=== PATIENT | male | born 1955 | race Caucasian/White ===

== ENCOUNTER → 2016-07-29 | Outpatient (CLI) | payer MEDICAID ==
[~2016-07-29] MED LIST: RIVA10TA PO; SIMV40TA96 PO
== END | disposition home or self-care (01) ==
LOC: HDHVI->DVH 08:20
PROVIDERS: ATTEND Internal Medicine Cardiovascular Disease
DX: I34.2 Nonrheumatic mitral (valve) stenosis (principal); I35.0 Nonrheumatic aortic (valve) stenosis; I34.0 Nonrheumatic mitral (valve) insufficiency; I37.1 Nonrheumatic pulmonary valve insufficiency; I07.1 Rheumatic tricuspid insufficiency; I35.1 Nonrheumatic aortic (valve) insufficiency; I25.10 Atherosclerotic heart disease of native coronary artery without angina pectoris; R94.31 Abnormal electrocardiogram [ECG] [EKG]
CPT/HCPCS: 93306

== ENCOUNTER 2016-08-04 03:46 | Emergency (ER) | payer MEDICAID ==
[~2016-08-04] VITALS: Ht 170.2 cm; Wt 94.8 kg
[2016-08-04 04:28] LABS: Basophils # (auto) 0 uL; Basophils % (auto) 0.8 % (0.0-2.0); Eosinophils # (auto) 0 uL; Eosinophils % (auto) 0.3 % (0.0-7.0); Hematocrit 49.9 % (41.0-53.0); Hemoglobin 16.4 g/dL (13.5-17.5); Lymphocytes # (auto) 2.4 uL; Lymphocytes % (auto) 40.2 % (10.0-50.0); Mean Corpuscular Hgb Conc. 32.8 g/dL (32.0-36.0); Mean Corpuscular Volume 88.5 fL (80.0-100.0); Mean Platelet Volume 9.3 fL (7.4-10.4); Monocytes # (auto) 0.7 uL; Monocytes % (auto) 11.7 % (0.0-12.0); Neutrophils # (auto) 2.8 uL; Platelet Count (auto) 178 10^3/uL (140-450); Red Cell Distribution Width 14.9 % (11.6-16.0); White Blood Cell 5.9 10^3/uL (4.4-10.8)
[2016-08-04 04:47] LABS: INR 1.02 (0.9-1.15); Prothrombin Time 10.5 sec (9.37-12.3)
[2016-08-04 05:03] LABS: Albumin 3.7 g/dL (3.4-5.0); Anion Gap 14 (5-15); Aspartate Aminotransferase 33 U/L (15-37); BUN/Creatinine Ratio 20.2; Blood Urea Nitrogen 38 mg/dL (7-18); Calcium 8.2 mg/dL (8.5-10.1); Carbon Dioxide 22 mmol/L (21-32); Chloride 101 mmol/L (98-107); GFR African American 47 mL/min; GFR Non-African American 39 mL/min; Glucose 145 mg/dL (74-106); Magnesium 2.4 mg/dL (1.6-2.6); Potassium 3.4 mmol/L (3.5-5.1); Sodium 137 mmol/L (136-145)
[2016-08-04 05:08] LABS: Alkaline Phosphatase 86 U/L (45-117); Bilirubin, Total 0.5 mg/dL (0.2-1.0); Total Protein 8.1 g/dL (6.4-8.2)
[2016-08-04] MEDS ORDERED: FUROSEMIDE 40 MG/4 ML VIAL IV ONE (07:00)
[2016-08-04 09:07] LABS: B-Type Natriuretic Peptide 10.8 pg/mL (0-100); Temperature: 21.9 C (20.0-25.0)
[2016-08-04 09:34] VITALS: BP 131/80
== END 2016-08-04 09:45 | disposition home or self-care (01) ==
LOC: ER 03:49
DX: I50.9 Heart failure, unspecified (principal); R07.9 Chest pain, unspecified; R05 Cough; R50.9 Fever, unspecified; R51 Headache; I25.2 Old myocardial infarction; N18.9 Chronic kidney disease, unspecified; Z95.1 Presence of aortocoronary bypass graft; Z98.61 Coronary angioplasty status
CPT/HCPCS: 36415; 36600; 71010; 80053; 82805; 83735; 83880; 84484; 85025; 85610; 85730; 93005; 93970; 96374; 99285; G0434; J1940

== ENCOUNTER → 2016-09-10 | Outpatient (CLI) | payer MEDICAID ==
[~2016-09-10] VITALS: Ht 170.2 cm; Wt 88.0 kg
== END | disposition home or self-care (01) ==
LOC: HDHVI->DVH 14:24
PROVIDERS: ATTEND Internal Medicine Cardiovascular Disease
DX: Z01.810 Encounter for preprocedural cardiovascular examination (principal); E78.00 Pure hypercholesterolemia, unspecified
CPT/HCPCS: 78452; 93017; 96374; A9500

== ENCOUNTER 2017-03-28 20:08 | Inpatient (IN) | payer MEDICAID ==
[~2017-03-28] VITALS: Ht 165.1 cm; Wt 94.4 kg
[2017-03-28] MEDS ORDERED: cefTRIAXone 1GM/50ML D5W 50 ML IV ONE (23:15)
[2017-03-28] MEDS ORDERED: VANCOMYCIN 1GM/250ML 250 ML IV ONE (23:15)
[2017-03-28] MEDS ORDERED: HYDROmorphone HCL 2 MG/ML VL IV ONE (23:15)
[2017-03-28 23:20] LABS: Basophils # (auto) 0.1 uL; Basophils % (auto) 0.8 % (0.0-2.0); Eosinophils # (auto) 0.1 uL; Eosinophils % (auto) 0.9 % (0.0-7.0); Hematocrit 44.3 % (41.0-53.0); Hemoglobin 14.9 g/dL (13.5-17.5); Lymphocytes # (auto) 2.7 uL; Lymphocytes % (auto) 23.6 % (10.0-50.0); Mean Corpuscular Hgb Conc. 33.7 g/dL (32.0-36.0); Mean Corpuscular Volume 92.1 fL (80.0-100.0); Monocytes # (auto) 1.2 uL; Monocytes % (auto) 10.7 % (0.0-12.0); Neutrophils # (auto) 7.3 uL; Platelet Count (auto) 181 10^3/uL (140-450); Red Blood Cells 4.81 10^6/uL (4.5-5.90); Red Cell Distribution Width 14.6 % (11.8-14.3); White Blood Cell 11.3 10^3/uL (4.4-10.8)
[2017-03-28 23:49] LABS: Potassium 3.7 mmol/L (3.5-5.1)
[2017-03-28 23:50] LABS: Albumin 3.5 g/dL (3.4-5.0); BUN/Creatinine Ratio 12.8; Calcium 8.6 mg/dL (8.5-10.1)
[2017-03-28 23:53] LABS: Bilirubin, Total 0.9 mg/dL (0.2-1.0); Total Protein 7.4 g/dL (6.4-8.2)
[2017-03-29] MEDS ORDERED: SIMV40TA96 PO (03:04)
[2017-03-29] MEDS ORDERED: ASPI81TA27 PO (03:04)
[2017-03-29] MEDS ORDERED: ONDANSETRON HCL 4 MG/2 ML VIAL IV PRN (03:45)
[2017-03-29] MEDS ORDERED: ACETAMINOPHEN 500 MG TAB PO PRN (03:45)
[2017-03-29] MEDS ORDERED: HYDROcodone-ACET 5/325MG TAB PO PRN (03:45)
[2017-03-29 03:50] VITALS: BP 124/71
[2017-03-29] MEDS ORDERED: VANCOMYCIN PER PHARMACY 0 MG IV SCH (04:15)
[2017-03-29] MEDS ORDERED: OMEG100078 PO (05:40)
[2017-03-29] MEDS ORDERED: MAGN400T5 PO (05:40)
[2017-03-29] MEDS ORDERED: INFLUENZA QUAD 2017-2018 0.5 ML SYRG IM ONE (06:00)
[2017-03-29 06:10] LABS: Basophils # (auto) 0.1 uL; Basophils % (auto) 0.9 % (0.0-2.0); Eosinophils # (auto) 0.2 uL; Eosinophils % (auto) 2.1 % (0.0-7.0); Hematocrit 42.8 % (41.0-53.0); Hemoglobin 14.5 g/dL (13.5-17.5); Lymphocytes # (auto) 2.6 uL; Lymphocytes % (auto) 30.6 % (10.0-50.0); Mean Corpuscular Hemoglobin 31.1 pg (28.0-32.0); Mean Corpuscular Hgb Conc. 33.9 g/dL (32.0-36.0); Mean Corpuscular Volume 91.7 fL (80.0-100.0); Monocytes # (auto) 1.1 uL; Monocytes % (auto) 13.1 % (0.0-12.0); Neutrophils # (auto) 4.6 uL; Neutrophils % (auto) 53.3 % (37.0-80.0); Nucleated Red Blood Cells % 0.1 %; Platelet Count (auto) 160 10^3/uL (140-450); Red Blood Cells 4.67 10^6/uL (4.5-5.90); Red Cell Distribution Width 14.6 % (11.8-14.3); White Blood Cell 8.6 10^3/uL (4.4-10.8)
[2017-03-29 06:26] LABS: Lactic Acid w/Reflex 2.1 mmol/L (0.4-2.0)
[2017-03-29 06:44] LABS: BUN/Creatinine Ratio 13.9; Calcium 8.6 mg/dL (8.5-10.1); Potassium 3.5 mmol/L (3.5-5.1)
[2017-03-29] MEDS: VANCOMYCIN 1GM/250ML 250 ML IV SCH ×2 (08:56→16:53)
[2017-03-29 09:00] VITALS: BP 113/62
[2017-03-29 11:16] LABS: Urine Bacteria NONE SEEN /hpf (None Seen); Urine Blood Negative /uL (Negative); Urine Mucus FEW (None Seen); Urine Specific Gravity 1.024 (1.001-1.035); Urine WBC 1 /hpf (0 - 3)
[2017-03-29 13:00] VITALS: BP 129/82
[2017-03-29 17:00] VITALS: BP 165/88
[2017-03-29] MEDS: ATORVASTATIN 20 MG TAB PO SCH (21:51)
[2017-03-29 21:59] VITALS: BP 133/81
[2017-03-30] MEDS: VANCOMYCIN 1GM/250ML 250 ML IV SCH ×3 (00:45→17:14)
[2017-03-30 04:44] VITALS: BP 139/75
[2017-03-30 06:55] LABS: Basophils # (auto) 0 uL; Basophils % (auto) 0.5 % (0.0-2.0); Eosinophils # (auto) 0.2 uL; Eosinophils % (auto) 2.3 % (0.0-7.0); Hematocrit 43.2 % (41.0-53.0); Hemoglobin 14.6 g/dL (13.5-17.5); Lymphocytes # (auto) 2.1 uL; Lymphocytes % (auto) 26.5 % (10.0-50.0); Mean Corpuscular Hgb Conc. 33.8 g/dL (32.0-36.0); Mean Corpuscular Volume 91.7 fL (80.0-100.0); Monocytes # (auto) 1.2 uL; Monocytes % (auto) 14.9 % (0.0-12.0); Neutrophils # (auto) 4.5 uL; Neutrophils % (auto) 55.8 % (37.0-80.0); Nucleated Red Blood Cells % 0.1 %; Platelet Count (auto) 167 10^3/uL (140-450); Red Blood Cells 4.71 10^6/uL (4.5-5.90); Red Cell Distribution Width 14.5 % (11.8-14.3)
[2017-03-30 07:07] LABS: BUN/Creatinine Ratio 13.3; Calcium 8.9 mg/dL (8.5-10.1); Potassium 3.9 mmol/L (3.5-5.1)
[2017-03-30 09:00] VITALS: BP_SYST 115; BP_SYST 135; BP_DIAS 72; BP_DIAS 86
[2017-03-30 13:00] VITALS: BP_SYST 116; BP_SYST 122; BP_SYST 131; BP_DIAS 67; BP_DIAS 88; BP_DIAS 96
[2017-03-30 17:00] VITALS: BP_SYST 121; BP_SYST 122; BP_DIAS 67; BP_DIAS 88
[2017-03-30 20:00] VITALS: BP 143/83
[2017-03-30] MEDS: ATORVASTATIN 20 MG TAB PO SCH (21:19)
[2017-03-30 21:46] VITALS: BP 143/83
[2017-03-31] MEDS: VANCOMYCIN 1GM/250ML 250 ML IV SCH ×3 (00:35→17:15)
[2017-03-31 05:16] VITALS: BP 145/90
[2017-03-31 06:01] LABS: BUN/Creatinine Ratio 17.2; Calcium 8.9 mg/dL (8.5-10.1); Potassium 4.1 mmol/L (3.5-5.1)
[2017-03-31 08:00] VITALS: BP 137/83
[2017-03-31 08:36] VITALS: BP 137/83
[2017-03-31 13:00] VITALS: BP 119/71
[2017-03-31 17:03] VITALS: BP 156/84
[2017-03-31] MEDS: ATORVASTATIN 20 MG TAB PO SCH (21:57)
[2017-03-31 22:00] VITALS: BP 132/79
[2017-04-01] MEDS: VANCOMYCIN 1GM/250ML 250 ML IV SCH ×3 (01:16→18:15)
[2017-04-01 05:00] VITALS: BP 119/78
[2017-04-01 06:36] LABS: Basophils # (auto) 0.1 uL; Eosinophils # (auto) 0.3 uL; Hematocrit 44.2 % (41.0-53.0); Hemoglobin 15.3 g/dL (13.5-17.5); Lymphocytes # (auto) 2.5 uL; Lymphocytes % (auto) 36.5 % (10.0-50.0); Mean Corpuscular Hemoglobin 31.5 pg (28.0-32.0); Mean Corpuscular Hgb Conc. 34.6 g/dL (32.0-36.0); Mean Corpuscular Volume 91.1 fL (80.0-100.0); Monocytes % (auto) 14.8 % (0.0-12.0); Neutrophils # (auto) 2.9 uL; Neutrophils % (auto) 43.7 % (37.0-80.0); Nucleated Red Blood Cells % 0.1 %; Platelet Count (auto) 205 10^3/uL (140-450); Red Blood Cells 4.85 10^6/uL (4.5-5.90); Red Cell Distribution Width 14.2 % (11.8-14.3); White Blood Cell 6.7 10^3/uL (4.4-10.8)
[2017-04-01 06:43] LABS: BUN/Creatinine Ratio 14.7; Calcium 8.9 mg/dL (8.5-10.1); Potassium 4.1 mmol/L (3.5-5.1)
[2017-04-01 06:46] LABS: Bilirubin, Total 0.3 mg/dL (0.2-1.0); Total Protein 6.8 g/dL (6.4-8.2)
[2017-04-01 08:00] VITALS: BP 134/78
[2017-04-01 09:00] VITALS: BP 134/78
[2017-04-01 13:00] VITALS: BP 139/80
[2017-04-01] MEDS: CEFEPIME HYDROCHLORIDE 2 GM in SODIUM CHL 0.9% 50 ML IV SCH ×2 (14:28→21:52)
[2017-04-01 16:56] VITALS: BP 136/90
[2017-04-01] MEDS: ATORVASTATIN 20 MG TAB PO SCH (21:32)
[2017-04-01 22:00] VITALS: BP 148/101
[2017-04-02] MEDS: VANCOMYCIN 1GM/250ML 250 ML IV SCH ×3 (01:26→17:00)
[2017-04-02 05:00] VITALS: BP 152/96
[2017-04-02] MEDS: CEFEPIME HYDROCHLORIDE 2 GM in SODIUM CHL 0.9% 50 ML IV SCH ×2 (05:15→13:53)
[2017-04-02 08:00] VITALS: BP 145/96
[2017-04-02 09:00] VITALS: BP 145/96
[2017-04-02 13:00] VITALS: BP 130/81
== END 2017-04-02 17:15 | disposition left against medical advice (07) | DRG 721 ==
LOC: ER 20:08 → OVERFLOW 20:09 → WEST WING 03-29 03:50
PROVIDERS: ADMIT Nurse Practitioner Family; ATTEND Internal Medicine Pulmonary Disease
DX: T81.4XXA Infection following a procedure, initial encounter (principal); A41.9 Sepsis, unspecified organism; L03.115 Cellulitis of right lower limb; E78.5 Hyperlipidemia, unspecified; J44.9 Chronic obstructive pulmonary disease, unspecified; E11.9 Type 2 diabetes mellitus without complications; Y83.8 Other surgical procedures as the cause of abnormal reaction of the patient, or of later complication, without mention of misadventure at the time of the procedure; Y92.89 Other specified places as the place of occurrence of the external cause; Z79.82 Long term (current) use of aspirin; Z79.899 Other long term (current) drug therapy; Z83.3 Family history of diabetes mellitus; Z23 Encounter for immunization
CPT/HCPCS: 36415; 73700; 80048; 80053; 80202; 81001; 83605; 83880; 85025; 87040; 87077; 87186; 87205; 96365; 96368; 96375; J0696

== ENCOUNTER 2021-03-26 15:12 | Inpatient (IN) | payer MEDICAID ==
[~2021-03-26] VITALS: Ht 170.2 cm; Wt 91.0 kg
[~2021-03-26 15:12] MED LIST changes: +ASPI-543 PO; +MAGN400T40 PO; +OMEG100078 PO; -RIVA10TA PO; +SIMV40TA2 PO; -SIMV40TA96 PO
[2021-03-26 16:57] LABS: Basophils # (auto) 0 10 ^3/uL (0-0.2); Basophils % (auto) 0.2 % (0.0-2.0); Eosinophils # (auto) 0.1 10 ^3/uL (0-0.8); Eosinophils % (auto) 0.8 % (0.0-7.0); Hematocrit 42.3 % (41.0-53.0); Lymphocytes # (auto) 1.9 10 ^3/uL (0.4-5.4); Lymphocytes % (auto) 18.2 % (10.0-50.0); Mean Corpuscular Hemoglobin 30.6 pg (28.0-32.0); Mean Corpuscular Hgb Conc. 33.1 g/dL (32.0-36.0); Mean Corpuscular Volume 92.5 fL (80.0-100.0); Monocytes # (auto) 1.4 10 ^3/uL (0-1.3); Monocytes % (auto) 13.8 % (0.0-12.0); Red Blood Cells 4.57 10^6/uL (4.5-5.90); Red Cell Distribution Width 15.1 % (11.8-14.3); White Blood Cell 10.4 10^3/uL (4.4-10.8)
[2021-03-26 17:13] LABS: Albumin 2.5 g/dL (3.4-5.0); BUN/Creatinine Ratio 19.8; Potassium 3.8 mmol/L (3.5-5.1)
[2021-03-26 17:15] LABS: Bilirubin, Total 0.7 mg/dL (0.2-1.0); Total Protein 5.9 g/dL (6.4-8.2)
[2021-03-26 20:48] LABS: Magnesium 2.2 mg/dL (1.6-2.6)
[2021-03-26 20:57] LABS: CRP High Sensitivity 17.8 mg/dL (< 0.3)
[2021-03-26] MEDS ORDERED: cefTRIAXone 1GM/50ML D5W 50 ML IV ONE (23:15)
[2021-03-26] MEDS ORDERED: VANCOMYCIN 1GM/250ML 250 ML IV ONE (23:15)
[2021-03-27] MEDS ORDERED: FUROSEMIDE 20 MG/2 ML VIAL IV ONE (02:00)
[2021-03-27] MEDS ORDERED: HYDROcodone-ACET 5/325MG TAB PO PRN (02:00)
[2021-03-27] MEDS ORDERED: TEMAZEPAM 15 MG CAP PO PRN (02:00)
[2021-03-27] MEDS ORDERED: ONDANSETRON HCL 4 MG/2 ML VIAL IV PRN (02:00)
[2021-03-27] MEDS ORDERED: ACETAMINOPHEN 325 MG TAB PO PRN (02:00)
[2021-03-27] MEDS ORDERED: VANCOMYCIN PER PHARMACY 0 MG IV SCH (03:00)
[2021-03-27] MEDS: IBUPROFEN 600 MG TAB PO PRN (03:37)
[2021-03-27] MEDS ORDERED: CLINDAMYCIN 600MG IV 50 ML IV SCH (06:00)
[2021-03-27] MEDS ORDERED: VANCOMYCIN 1GM/250ML 250 ML IV ONE (07:36)
[2021-03-27] MEDS: ENOXAPARIN SOD 40 MG/0.4 ML SYRINGE SC SCH (09:26)
[2021-03-27] MEDS: FUROSEMIDE 20 MG TAB PO SCH (09:26)
[2021-03-27] MEDS: cefTRIAXone 1GM/50ML D5W 50 ML IV SCH (09:26)
[2021-03-27] MEDS ORDERED: PANTOPRAZOLE 40 MG TAB PO SCH (10:00)
[2021-03-27] MEDS ORDERED: ASPirin 81 mg TAB PO ONE (14:45)
[2021-03-27 16:22] LABS: Cholesterol 114 mg/dL (< 200); HDL Cholesterol 19 mg/dL (40-59); LDL Cholesterol 82 mg/dL (< 100); Triglycerides 113 mg/dL (< 150)
[2021-03-27] MEDS: ACETAMINOPHEN 325 MG TAB PO PRN (17:07)
[2021-03-27 17:54] VITALS: BP 124/68
[2021-03-27 20:00] VITALS: BP 129/66
[2021-03-27] MEDS: VANCOMYCIN 1GM/250ML 250 ML IV SCH (20:35)
[2021-03-27 22:02] VITALS: BP 129/66
[2021-03-27] MEDS: ATORVASTATIN 20 MG TAB PO SCH (22:25)
[2021-03-28] VITALS (7 sets, daily range): BP systolic 119–145; BP diastolic 67–74
[2021-03-28 06:04] LABS: Basophils # (auto) 0.1 10 ^3/uL (0-0.2); Basophils % (auto) 0.8 % (0.0-2.0); Eosinophils # (auto) 0.1 10 ^3/uL (0-0.8); Eosinophils % (auto) 0.8 % (0.0-7.0); Hematocrit 42.2 % (41.0-53.0); Hemoglobin 14.3 g/dL (13.5-17.5); Lymphocytes % (auto) 18.5 % (10.0-50.0); Mean Corpuscular Hemoglobin 31.2 pg (28.0-32.0); Mean Corpuscular Hgb Conc. 33.9 g/dL (32.0-36.0); Mean Corpuscular Volume 91.9 fL (80.0-100.0); Monocytes # (auto) 1.5 10 ^3/uL (0-1.3); Neutrophils # (auto) 7.1 10 ^3/uL (1.6-8.6); Neutrophils % (auto) 65.9 % (37.0-80.0); Nucleated Red Blood Cells % 0.1 %; Red Cell Distribution Width 15.1 % (11.8-14.3); White Blood Cell 10.8 10^3/uL (4.4-10.8)
[2021-03-28 07:05] LABS: BUN/Creatinine Ratio 20.8; Calcium 7.8 mg/dL (8.5-10.1); Potassium 3.7 mmol/L (3.5-5.1)
[2021-03-28] MEDS: VANCOMYCIN 1GM/250ML 250 ML IV SCH ×2 (08:30→20:48)
[2021-03-28] MEDS: ASPirin 81 mg TAB PO SCH (08:31)
[2021-03-28] MEDS: ENOXAPARIN SOD 40 MG/0.4 ML SYRINGE SC SCH (08:31)
[2021-03-28] MEDS: FUROSEMIDE 20 MG TAB PO SCH (08:32)
[2021-03-28] MEDS: cefTRIAXone 1GM/50ML D5W 50 ML IV SCH (09:30)
[2021-03-28] MEDS: MORPHINE SULFATE INJECTION 2 MG/ML SYRG IV PRN (13:13)
[2021-03-28] MEDS: IBUPROFEN 600 MG TAB PO PRN (16:52)
[2021-03-28] MEDS: ACETAMINOPHEN 325 MG TAB PO PRN (17:56)
[2021-03-28] MEDS: ATORVASTATIN 20 MG TAB PO SCH (22:00)
[2021-03-29] MEDS: VANCOMYCIN 1GM/250ML 250 ML IV SCH ×3 (04:35→22:18)
[2021-03-29] MEDS: MORPHINE SULFATE INJECTION 2 MG/ML SYRG IV PRN ×4 (04:36→20:57)
[2021-03-29 05:30] VITALS: BP 122/79
[2021-03-29 08:36] VITALS: BP 124/64
[2021-03-29] MEDS: ASPirin 81 mg TAB PO SCH (09:18)
[2021-03-29] MEDS: cefTRIAXone 1GM/50ML D5W 50 ML IV SCH (09:18)
[2021-03-29] MEDS: ENOXAPARIN SOD 40 MG/0.4 ML SYRINGE SC SCH (09:18)
[2021-03-29] MEDS: FUROSEMIDE 20 MG TAB PO SCH (09:18)
[2021-03-29 12:57] VITALS: BP 123/64
[2021-03-29 17:13] VITALS: BP 121/68
[2021-03-29 20:00] VITALS: BP 118/74
[2021-03-29 22:00] VITALS: BP 118/74
[2021-03-29] MEDS: ATORVASTATIN 20 MG TAB PO SCH (22:18)
[2021-03-30] MEDS: MORPHINE SULFATE INJECTION 2 MG/ML SYRG IV PRN ×3 (04:27→14:58)
[2021-03-30] MEDS: VANCOMYCIN 1GM/250ML 250 ML IV SCH ×3 (04:28→23:30)
[2021-03-30 05:00] VITALS: BP 115/74
[2021-03-30 09:00] VITALS: BP 122/82
[2021-03-30] MEDS: cefTRIAXone 1GM/50ML D5W 50 ML IV SCH (09:33)
[2021-03-30] MEDS: ENOXAPARIN SOD 40 MG/0.4 ML SYRINGE SC SCH (09:34)
[2021-03-30] MEDS: FUROSEMIDE 20 MG TAB PO SCH (09:34)
[2021-03-30] MEDS: ASPirin 81 mg TAB PO SCH (09:34)
[2021-03-30 12:00] VITALS: BP 106/67
[2021-03-30 17:12] VITALS: BP 112/62
[2021-03-30 22:00] VITALS: BP 108/72
[2021-03-30] MEDS: ATORVASTATIN 20 MG TAB PO SCH (22:00)
[2021-03-31] MEDS: MORPHINE SULFATE INJECTION 2 MG/ML SYRG IV PRN ×5 (02:44→23:43)
[2021-03-31 05:00] VITALS: BP 109/70
[2021-03-31 09:27] VITALS: BP 108/67
[2021-03-31] MEDS: VANCOMYCIN 1GM/250ML 250 ML IV SCH ×2 (09:37→18:45)
[2021-03-31] MEDS: cefTRIAXone 1GM/50ML D5W 50 ML IV SCH (10:04)
[2021-03-31] MEDS: ASPirin 81 mg TAB PO SCH (10:04)
[2021-03-31] MEDS: ENOXAPARIN SOD 40 MG/0.4 ML SYRINGE SC SCH (10:05)
[2021-03-31] MEDS: FUROSEMIDE 20 MG TAB PO SCH (10:05)
[2021-03-31 17:01] VITALS: BP 102/68
[2021-03-31 20:00] VITALS: BP 112/69
[2021-03-31] MEDS: ATORVASTATIN 20 MG TAB PO SCH (21:43)
[2021-03-31 22:00] VITALS: BP 103/62
[2021-04-01 05:00] VITALS: BP 107/70
[2021-04-01] MEDS: VANCOMYCIN 1GM/250ML 250 ML IV SCH ×2 (05:16→15:21)
[2021-04-01] MEDS: MORPHINE SULFATE INJECTION 2 MG/ML SYRG IV PRN ×2 (05:28→19:04)
[2021-04-01 05:42] LABS: Basophils # (auto) 0.1 10 ^3/uL (0-0.2); Eosinophils # (auto) 0.2 10 ^3/uL (0-0.8); Eosinophils % (auto) 2.5 % (0.0-7.0); Hematocrit 46.5 % (41.0-53.0); Hemoglobin 15.2 g/dL (13.5-17.5); Lymphocytes # (auto) 2.3 10 ^3/uL (0.4-5.4); Lymphocytes % (auto) 27.8 % (10.0-50.0); Mean Corpuscular Hemoglobin 29.9 pg (28.0-32.0); Mean Corpuscular Hgb Conc. 32.7 g/dL (32.0-36.0); Mean Corpuscular Volume 91.6 fL (80.0-100.0); Monocytes % (auto) 12.4 % (0.0-12.0); Neutrophils # (auto) 4.6 10 ^3/uL (1.6-8.6); Neutrophils % (auto) 56.3 % (37.0-80.0); Nucleated Red Blood Cells % 0.1 %; Red Blood Cells 5.07 10^6/uL (4.5-5.90); Red Cell Distribution Width 14.8 % (11.8-14.3); White Blood Cell 8.2 10^3/uL (4.4-10.8)
[2021-04-01 06:05] LABS: Calcium 8.4 mg/dL (8.5-10.1); Potassium 4.7 mmol/L (3.5-5.1)
[2021-04-01 06:09] LABS: BUN/Creatinine Ratio 20.8
[2021-04-01 08:31] VITALS: BP 112/71
[2021-04-01] MEDS: cefTRIAXone 1GM/50ML D5W 50 ML IV SCH (09:35)
[2021-04-01] MEDS: ASPirin 81 mg TAB PO SCH (09:35)
[2021-04-01] MEDS: ENOXAPARIN SOD 40 MG/0.4 ML SYRINGE SC SCH (09:36)
[2021-04-01] MEDS: FUROSEMIDE 20 MG TAB PO SCH (09:36)
[2021-04-01 12:50] VITALS: BP 111/69
[2021-04-01 16:50] VITALS: BP 100/66
[2021-04-01] MEDS: ATORVASTATIN 20 MG TAB PO SCH (21:09)
[2021-04-01 22:00] VITALS: BP 97/66
[2021-04-02 01:06] LABS: INR 1.1 (0.9-1.15); Partial Thromboplastin Time 27.6 sec (23.6-33.0)
[2021-04-02] MEDS: VANCOMYCIN 1GM/250ML 250 ML IV SCH ×3 (01:29→20:46)
[2021-04-02 02:30] LABS: Urine Bacteria NONE SEEN /hpf (None Seen); Urine Blood Negative /uL (Negative); Urine WBC 1 /hpf (0 - 3)
[2021-04-02 05:00] VITALS: BP 110/73
[2021-04-02] MEDS ORDERED: ceFAZolin 1GM/50ML 100 ML IV ONE (08:41)
[2021-04-02 09:00] VITALS: BP 102/69
[2021-04-02] MEDS ORDERED: ROPIVACAINE 0.5% (5MG/ML) 20ML AMPULE IJ ONE (09:13)
[2021-04-02] MEDS ORDERED: fentaNYL CITRATE 100 MCG/2 ML VL ONE (09:26)
[2021-04-02] MEDS ORDERED: MIDAZOLAM HCL 2MG/2ML 2ml VIAL (1mg/ml) ONE (09:26)
[2021-04-02] MEDS ORDERED: PROPOFOL 10 MG/ML 20 ML IV ONE (09:27)
[2021-04-02] MEDS ORDERED: DexAMETHasone SOD PHOS 10MG/1ML VIAL INJ ONE (09:27)
[2021-04-02] MEDS ORDERED: MORPHINE SULFATE 4 MG/ML SYR/VIAL IV PRN (09:45)
[2021-04-02] MEDS ORDERED: ONDANSETRON HCL 4 MG/2 ML VIAL IV PRN (09:45)
[2021-04-02] MEDS ORDERED: HYDROmorphone HCL 2 MG/ML VL IV PRN (09:45)
[2021-04-02] MEDS ORDERED: ePHEDrine SULFATE 50 MG/ML AMP IV PRN (09:45)
[2021-04-02] MEDS ORDERED: MIDAZOLAM HCL 2MG/2ML 2ml VIAL (1mg/ml) IV PRN (09:45)
[2021-04-02] MEDS ORDERED: LABETALOL HCL 5 MG/ML 4ML SYRINGE IV PRN (09:45)
[2021-04-02] MEDS ORDERED: hydrALAZINE HCL 20 MG/ML VL IV PRN (09:45)
[2021-04-02] MEDS ORDERED: SILVER SULFADIAZINE 1 % TOPICAL CREAM 50GM TOP ONE (09:49)
[2021-04-02] MEDS: ASPirin 81 mg TAB PO SCH (10:00)
[2021-04-02] MEDS: ENOXAPARIN SOD 40 MG/0.4 ML SYRINGE SC SCH (10:00)
[2021-04-02] MEDS: FUROSEMIDE 20 MG TAB PO SCH (12:33)
[2021-04-02] MEDS: cefTRIAXone 1GM/50ML D5W 50 ML IV SCH (12:33)
[2021-04-02 13:00] VITALS: BP 105/72
[2021-04-02] MEDS: MORPHINE SULFATE INJECTION 2 MG/ML SYRG IV PRN ×2 (14:53→20:46)
[2021-04-02] MEDS: ATORVASTATIN 20 MG TAB PO SCH (20:46)
[2021-04-02 21:30] VITALS: BP 104/67
[2021-04-03 05:00] VITALS: BP 105/72
[2021-04-03] MEDS: VANCOMYCIN 1GM/250ML 250 ML IV SCH ×2 (06:35→17:15)
[2021-04-03] MEDS: MORPHINE SULFATE INJECTION 2 MG/ML SYRG IV PRN (06:44)
[2021-04-03 08:31] VITALS: BP 106/71
[2021-04-03] MEDS: cefTRIAXone 1GM/50ML D5W 50 ML IV SCH (09:19)
[2021-04-03] MEDS: FUROSEMIDE 20 MG TAB PO SCH (09:19)
[2021-04-03] MEDS: ASPirin 81 mg TAB PO SCH (09:20)
[2021-04-03] MEDS: ENOXAPARIN SOD 40 MG/0.4 ML SYRINGE SC SCH (09:20)
[2021-04-03] MEDS ORDERED: CARVEDILOL 3.125 MG TAB PO SCH (10:00)
[2021-04-03] MEDS ORDERED: LISINOPRIL 5 MG TAB PO SCH (10:00)
[2021-04-03 12:39] VITALS: BP 103/67
[2021-04-03] MEDS: traMADol HCL 50 MG TAB PO PRN ×2 (14:19→20:01)
[2021-04-03 17:00] VITALS: BP 107/71
[2021-04-03] MEDS: ATORVASTATIN 20 MG TAB PO SCH (21:21)
[2021-04-03 22:00] VITALS: BP 103/64
[2021-04-04] MEDS: VANCOMYCIN 1GM/250ML 250 ML IV SCH ×3 (03:05→23:26)
[2021-04-04 05:00] VITALS: BP 109/65
[2021-04-04 08:00] VITALS: BP 107/70
[2021-04-04] MEDS: traMADol HCL 50 MG TAB PO PRN ×2 (08:25→19:51)
[2021-04-04] MEDS: cefTRIAXone 1GM/50ML D5W 50 ML IV SCH (09:35)
[2021-04-04] MEDS: ASPirin 81 mg TAB PO SCH (09:36)
[2021-04-04] MEDS: FUROSEMIDE 20 MG TAB PO SCH (09:36)
[2021-04-04] MEDS: ENOXAPARIN SOD 40 MG/0.4 ML SYRINGE SC SCH (09:37)
[2021-04-04 12:30] VITALS: BP 98/61
[2021-04-04 17:03] VITALS: BP 109/71
[2021-04-04] MEDS: ATORVASTATIN 20 MG TAB PO SCH (21:19)
[2021-04-04 22:00] VITALS: BP 103/59
[2021-04-05 05:00] VITALS: BP_SYST 100; BP_SYST 106; BP_DIAS 66; BP_DIAS 70
[2021-04-05 09:00] VITALS: BP 103/70
[2021-04-05] MEDS: VANCOMYCIN 1GM/250ML 250 ML IV SCH ×2 (09:55→19:27)
[2021-04-05] MEDS: ASPirin 81 mg TAB PO SCH (09:55)
[2021-04-05] MEDS: FUROSEMIDE 20 MG TAB PO SCH (09:56)
[2021-04-05] MEDS: ENOXAPARIN SOD 40 MG/0.4 ML SYRINGE SC SCH (09:56)
[2021-04-05 13:03] VITALS: BP 118/64
[2021-04-05] MEDS: cefTRIAXone 1GM/50ML D5W 50 ML IV SCH (13:34)
[2021-04-05 17:00] VITALS: BP 108/66
[2021-04-05] MEDS: traMADol HCL 50 MG TAB PO PRN (18:14)
[2021-04-05 22:00] VITALS: BP 119/72
[2021-04-05] MEDS: ATORVASTATIN 20 MG TAB PO SCH (22:03)
[2021-04-06] MEDS: VANCOMYCIN 1GM/250ML 250 ML IV SCH (04:53)
[2021-04-06 05:00] VITALS: BP 110/67
[2021-04-06 06:02] LABS: Calcium 8.6 mg/dL (8.5-10.1)
[2021-04-06 06:04] LABS: BUN/Creatinine Ratio 25.3
[2021-04-06 09:00] VITALS: BP 113/61
[2021-04-06] MEDS: cefTRIAXone 1GM/50ML D5W 50 ML IV SCH (09:08)
[2021-04-06] MEDS: ASPirin 81 mg TAB PO SCH (09:08)
[2021-04-06] MEDS: FUROSEMIDE 20 MG TAB PO SCH (09:08)
[2021-04-06] MEDS: ENOXAPARIN SOD 40 MG/0.4 ML SYRINGE SC SCH (09:09)
[2021-04-06 13:00] VITALS: BP 96/62
[2021-04-06 17:00] VITALS: BP 102/67
[2021-04-06] MEDS ORDERED: VANCOMYCIN 1GM/250ML 250 ML IV SCH (19:00)
[2021-04-06 21:37] VITALS: BP 118/65
[2021-04-06] MEDS: ATORVASTATIN 20 MG TAB PO SCH (21:43)
[2021-04-07 05:04] VITALS: BP 97/70
[2021-04-07 07:50] VITALS: BP 95/64
[2021-04-07 09:04] VITALS: BP 95/64
[2021-04-07] MEDS: FUROSEMIDE 20 MG TAB PO SCH (10:00)
[2021-04-07] MEDS ORDERED: levoFLOXacin 500 MG TAB PO SCH (10:00)
[2021-04-07] MEDS ORDERED: levoFLOXacin 750MG 150 ML IV SCH (10:00)
[2021-04-07] MEDS: ENOXAPARIN SOD 40 MG/0.4 ML SYRINGE SC SCH (10:17)
[2021-04-07] MEDS: ASPirin 81 mg TAB PO SCH (10:17)
[2021-04-07 11:30] VITALS: BP 95/64
[2021-04-07 13:00] VITALS: BP 94/63
== END 2021-04-07 16:20 | disposition home or self-care (01) | DRG 602 ==
LOC: ER 15:12 → OVERFLOW 03-27 01:52 → CENTRAL 03-27 17:22
PROVIDERS: ADMIT Nurse Practitioner; ATTEND Family Medicine
PROC: 0Y9M0ZZ Drainage of Right Foot, Open Approach (ICD-10-PCS; principal; 2021-04-02 09:34)
DX: L03.115 Cellulitis of right lower limb (principal); I50.43 Acute on chronic combined systolic (congestive) and diastolic (congestive) heart failure; E44.0 Moderate protein-calorie malnutrition; L02.611 Cutaneous abscess of right foot; I11.0 Hypertensive heart disease with heart failure; T63.301A Toxic effect of unspecified spider venom, accidental (unintentional), initial encounter; I25.10 Atherosclerotic heart disease of native coronary artery without angina pectoris; E66.9 Obesity, unspecified; E78.5 Hyperlipidemia, unspecified; E78.00 Pure hypercholesterolemia, unspecified; Z20.822 Contact with and (suspected) exposure to COVID-19; I25.2 Old myocardial infarction; Z68.31 Body mass index [BMI] 31.0-31.9, adult; Z82.0 Family history of epilepsy and other diseases of the nervous system; Z82.3 Family history of stroke; Z82.49 Family history of ischemic heart disease and other diseases of the circulatory system; Z82.5 Family history of asthma and other chronic lower respiratory diseases; Z83.3 Family history of diabetes mellitus; Z95.1 Presence of aortocoronary bypass graft; Z98.61 Coronary angioplasty status; Y92.89 Other specified places as the place of occurrence of the external cause
CPT/HCPCS: 36415; 71045; 73590; 73630; 73700; 73718; 80048; 80053; 80061; 80202; 81001; 82565; 83036; 83605; 83735; 83880; 84443; 85025; 85610; 85652; 85730; 86141; 86850; 86900; 86901; 87040; 87070; 87075; 87077; 87081; 87186; 87205; 87426; 93005; 93306; 93971; 96365; 96367; 96375; G0378; J0690; J0696; J1100; J2250; J2704

== ENCOUNTER 2021-12-03 21:24 | Emergency (ER) | payer MEDICARE, MEDICAID ==
[~2021-12-03] VITALS: Ht 170.2 cm; Wt 102.5 kg
[2021-12-03 23:57] LABS: Basophils # (auto) 0.1 10 ^3/uL (0-0.2); Basophils % (auto) 1.5 % (0.0-2.0); Eosinophils # (auto) 0.3 10 ^3/uL (0-0.8); Eosinophils % (auto) 3.1 % (0.0-7.0); Hematocrit 44.4 % (41.0-53.0); Hemoglobin 14.5 g/dL (13.5-17.5); Mean Corpuscular Hemoglobin 29.1 pg (28.0-32.0); Mean Corpuscular Hgb Conc. 32.6 g/dL (32.0-36.0); Mean Corpuscular Volume 89.2 fL (80.0-100.0); Monocytes % (auto) 12.1 % (0.0-12.0); Neutrophils # (auto) 3.8 10 ^3/uL (1.6-8.6); Neutrophils % (auto) 46.3 % (37.0-80.0); Red Blood Cells 4.98 10^6/uL (4.5-5.90); Red Cell Distribution Width 15.4 % (11.8-14.3); White Blood Cell 8.2 10^3/uL (4.4-10.8)
[2021-12-04 00:12] LABS: INR 1.05 (0.9-1.15); Partial Thromboplastin Time 25.4 sec (24.6-33.4)
[2021-12-04 00:17] LABS: Albumin 3.3 g/dL (3.4-5.0); BUN/Creatinine Ratio 21.1; Calcium 8.8 mg/dL (8.5-10.1); Potassium 4.2 mmol/L (3.5-5.1)
[2021-12-04 00:20] LABS: Bilirubin, Total 0.5 mg/dL (0.2-1.0); Total Protein 6.8 g/dL (6.4-8.2)
[2021-12-04] MEDS ORDERED: FUROSEMIDE 100 MG/10ML VIAL IV ONE (01:15)
[2021-12-04] MEDS ORDERED: NITROGLYCERIN 0.4MG/HR TOPICAL PATCH TD ONE (01:15)
[2021-12-04 02:00] VITALS: BP 157/103
[2021-12-04 02:04] LABS: Urine Bacteria FEW /hpf (None Seen); Urine Blood Negative /uL (Negative); Urine Hyaline Cast FEW /lpf (0 - 2); Urine WBC 1 /hpf (0 - 3)
== END 2021-12-04 03:28 | disposition left against medical advice (07) ==
LOC: ER 21:24
DX: I50.9 Heart failure, unspecified (principal); E78.5 Hyperlipidemia, unspecified
CPT/HCPCS: 36415; 71045; 80053; 81001; 83880; 84484; 85025; 85610; 85730; 93005; 96374; 99285; J1940

== ENCOUNTER 2022-01-28 06:19 | Day surgery (SDC) | payer MEDICARE, MEDICAID ==
[2022-01-23 14:50] LABS: Basophils # (auto) 0 10 ^3/uL (0-0.2); Basophils % (auto) 0.8 % (0.0-2.0); Eosinophils # (auto) 0.1 10 ^3/uL (0-0.8); Hematocrit 47.6 % (41.0-53.0); Hemoglobin 14.8 g/dL (13.5-17.5); Lymphocytes # (auto) 2.1 10 ^3/uL (0.4-5.4); Lymphocytes % (auto) 33.1 % (10.0-50.0); Mean Corpuscular Hemoglobin 27.8 pg (28.0-32.0); Mean Corpuscular Hgb Conc. 31.2 g/dL (32.0-36.0); Mean Corpuscular Volume 89.3 fL (80.0-100.0); Monocytes # (auto) 0.5 10 ^3/uL (0-1.3); Monocytes % (auto) 8.5 % (0.0-12.0); Neutrophils # (auto) 3.6 10 ^3/uL (1.6-8.6); Neutrophils % (auto) 55.6 % (37.0-80.0); Nucleated Red Blood Cells % 0.1 %; Red Blood Cells 5.32 10^6/uL (4.5-5.90); White Blood Cell 6.5 10^3/uL (4.4-10.8)
[2022-01-23 15:09] LABS: Urine Bacteria NONE SEEN /hpf (None Seen); Urine Blood Negative /uL (Negative); Urine Hyaline Cast FEW /lpf (0 - 2); Urine WBC 5 /hpf (0 - 3)
[2022-01-23 15:31] LABS: Albumin 3.8 g/dL (3.4-5.0); BUN/Creatinine Ratio 13.5; Calcium 8.9 mg/dL (8.5-10.1); Potassium 3.4 mmol/L (3.5-5.1)
[2022-01-23 15:33] LABS: INR 1.07 (0.9-1.15); Partial Thromboplastin Time 26.4 sec (24.6-33.4)
[2022-01-23 15:34] LABS: Total Protein 7.2 g/dL (6.4-8.2)
[~2022-01-28] VITALS: Ht 170.2 cm; Wt 84.4 kg
[~2022-01-28 06:19] MED LIST changes: +ATOR20TA PO; +CARV12.544 PO; +EMPA1TAB PO; +FURO1TAB31 PO; +LOSA25TA38 PO; -MAGN400T40 PO; -OMEG100078 PO; +POTA-220 PO; -SIMV40TA2 PO
[2022-01-28] MEDS ORDERED: ceFAZolin 1GM/50ML 100 ML IV ONE (06:36)
[2022-01-28] MEDS ORDERED: ceFAZolin 1GM VL ONE (06:49)
[2022-01-28] MEDS ORDERED: NEOMYCIN-BACITRACIN-POLYM 15GM TOP OINT TOP ONE (06:49)
[2022-01-28] MEDS ORDERED: ROPIVACAINE 0.5% (5MG/ML) 20ML AMPULE IJ ONE (06:49)
[2022-01-28] MEDS ORDERED: HYDROmorphone HCL 2 MG/ML VL/or syr IV PRN (08:45)
[2022-01-28] MEDS ORDERED: ACCU-CHEK COMFORT CURVE STRIP VI ONE (08:45)
[2022-01-28] MEDS ORDERED: ONDANSETRON HCL 4 MG/2 ML VIAL IV PRN (08:45)
[2022-01-28 10:06] VITALS: BP 117/87
== END 2022-01-28 09:54 | disposition home or self-care (01) ==
LOC: SUR 06:19
PROVIDERS: ATTEND Podiatrist Foot & Ankle Surgery
DX: S93.302A Unspecified subluxation of left foot, initial encounter (principal); M20.42 Other hammer toe(s) (acquired), left foot; L84 Corns and callosities; I11.0 Hypertensive heart disease with heart failure; I50.9 Heart failure, unspecified; E11.9 Type 2 diabetes mellitus without complications; I25.2 Old myocardial infarction; I25.10 Atherosclerotic heart disease of native coronary artery without angina pectoris; E78.5 Hyperlipidemia, unspecified; Z95.5 Presence of coronary angioplasty implant and graft; Z98.890 Other specified postprocedural states; Z79.899 Other long term (current) drug therapy; Z20.822 Contact with and (suspected) exposure to COVID-19; X58.XXXA Exposure to other specified factors, initial encounter; Y92.89 Other specified places as the place of occurrence of the external cause; Y93.89 Activity, other specified; Y99.8 Other external cause status
CPT/HCPCS: 28285; 36415; 80053; 81001; 82962; 85025; 85610; 85730; J0690; J1170; J2795; U0003

== ENCOUNTER 2022-05-18 14:48 | Inpatient (IN) | payer MEDICARE, MEDICAID ==
[~2022-05-18] VITALS: Ht 170.2 cm; Wt 98.9 kg
[2022-05-18 15:15] VITALS: BP 121/76
[2022-05-18 16:03] LABS: Basophils # (auto) 0.1 10 ^3/uL (0-0.2); Basophils % (auto) 1.1 % (0.0-2.0); Eosinophils # (auto) 0.1 10 ^3/uL (0-0.8); Eosinophils % (auto) 2.1 % (0.0-7.0); Hematocrit 47.1 % (41.0-53.0); Hemoglobin 15.2 g/dL (13.5-17.5); Lymphocytes # (auto) 2.2 10 ^3/uL (0.4-5.4); Lymphocytes % (auto) 36.6 % (10.0-50.0); Mean Corpuscular Hemoglobin 29.2 pg (28.0-32.0); Mean Corpuscular Hgb Conc. 32.2 g/dL (32.0-36.0); Mean Corpuscular Volume 90.8 fL (80.0-100.0); Monocytes # (auto) 0.7 10 ^3/uL (0-1.3); Neutrophils # (auto) 2.9 10 ^3/uL (1.6-8.6); Neutrophils % (auto) 48.2 % (37.0-80.0); Nucleated Red Blood Cells % 0.4 %; Red Blood Cells 5.19 10^6/uL (4.5-5.90); Red Cell Distribution Width 16.4 % (11.8-14.3); White Blood Cell 5.9 10^3/uL (4.4-10.8)
[2022-05-18] MEDS ORDERED: FUROSEMIDE 100 MG/10ML VIAL IV ONE (18:15)
[2022-05-18 19:12] LABS: Albumin 3.3 g/dL (3.4-5.0); BUN/Creatinine Ratio 22.4; Calcium 8.7 mg/dL (8.5-10.1); Magnesium 2.3 mg/dL (1.6-2.6); Potassium 4.1 mmol/L (3.5-5.1)
[2022-05-18 19:15] LABS: Bilirubin, Total 0.9 mg/dL (0.2-1.0); Total Protein 6.5 g/dL (6.4-8.2)
[2022-05-18] MEDS ORDERED: NITROGLYCERIN 0.4 MG SL TAB SL PRN (22:00)
[2022-05-18] MEDS ORDERED: LORazepam 0.5 MG TAB PO PRN (22:00)
[2022-05-18] MEDS ORDERED: ALUM & MAG HYDROX-SIMETH LIQ(MAALOX) 30 ML PO PRN (22:00)
[2022-05-18] MEDS ORDERED: ACETAMINOPHEN 325 MG TAB PO PRN (22:00)
[2022-05-18] MEDS ORDERED: ONDANSETRON HCL 4 MG/2 ML VIAL IV PRN (22:00)
[2022-05-18] MEDS ORDERED: MORPHINE SULFATE INJ 2 MG/ml SYRG IV PRN ×2 (22:00)
[2022-05-18] MEDS ORDERED: DOCUSATE SOD 100 MG CAP PO PRN (22:00)
[2022-05-18] MEDS ORDERED: HYDROcodone-ACET 5/325MG TAB PO PRN (22:00)
[2022-05-18] MEDS ORDERED: TEMAZEPAM 15 MG CAP PO PRN (22:00)
[2022-05-18] MEDS ORDERED: DEXTROSE (50%) 50ML SYRG IV PRN (22:15)
[2022-05-19] MEDS ORDERED: ACCU-CHEK COMFORT CURVE STRIP VI SCH
[2022-05-19] MEDS ORDERED: InsuLIN REG 1unit/0.01ml Soln (100units/ml) SC SCH
[2022-05-19] MEDS ORDERED: ASPirin 81 mg TAB PO SCH (10:00)
[2022-05-19] MEDS ORDERED: FUROSEMIDE 40 MG/4 ML VIAL IV SCH (10:00)
[2022-05-19] MEDS ORDERED: ATORVASTATIN 20 MG TAB PO SCH (10:00)
[2022-05-19] MEDS ORDERED: LOSARTAN POTASSIUM 50 MG TAB PO SCH (10:00)
[2022-05-19] MEDS ORDERED: CARVEDILOL 12.5 MG TAB PO SCH (10:00)
== END 2022-05-19 03:00 | disposition left against medical advice (07) | DRG 293 ==
LOC: ER 14:48 → TELE 22:02
PROVIDERS: ADMIT Hospitalist; ATTEND Student in an Organized Health Care Education/Training Program
DX: I50.23 Acute on chronic systolic (congestive) heart failure (principal); Z53.21 Procedure and treatment not carried out due to patient leaving prior to being seen by health care provider; Z20.822 Contact with and (suspected) exposure to COVID-19; Z83.3 Family history of diabetes mellitus; Z82.3 Family history of stroke; Z82.49 Family history of ischemic heart disease and other diseases of the circulatory system; Z95.1 Presence of aortocoronary bypass graft; Z91.199 Patient's noncompliance with other medical treatment and regimen due to unspecified reason
CPT/HCPCS: 36415; 71045; 80053; 83735; 83880; 84484; 85025; 87426; 93005; G0378

== ENCOUNTER 2022-09-23 19:56 | Inpatient (IN) | payer MEDICARE, MEDICAID ==
[~2022-09-23] VITALS: Ht 170.2 cm; Wt 86.0 kg
[2022-09-23 21:08] LABS: Hemoglobin 14.9 g/dL (13.5-17.5); Mean Corpuscular Hgb Conc. 33.2 g/dL (32.0-36.0); Mean Corpuscular Volume 90.4 fL (80.0-100.0); Red Blood Cells 4.98 10^6/uL (4.5-5.90); Red Cell Distribution Width 19.3 % (11.8-14.3); White Blood Cell 6.8 10^3/uL (4.4-10.8)
[2022-09-23 21:15] LABS: Albumin 2.9 g/dL (3.4-5.0); Calcium 8.1 mg/dL (8.5-10.1); Potassium 3.9 mmol/L (3.5-5.1)
[2022-09-23 21:19] LABS: BUN/Creatinine Ratio 24.3 (10.0-20.0); Bilirubin, Total 1.4 mg/dL (0.2-1.0); Total Protein 6.2 g/dL (6.4-8.2)
[2022-09-23 21:25] LABS: INR 1.52 (0.9-1.15); Partial Thromboplastin Time 28.2 sec (24.6-33.4)
[2022-09-23 21:39] LABS: Band Neutrophils % (manual) 0; Basophils % (manual) 0 (0.0-2.0); Blast Cells 0; Eosinophils % (manual) 0 (0-7); Metamyelocytes % 0; Myelocytes % 0; Promyelocytes % 0
[2022-09-23 23:15] LABS: Lymphocytes % (manual) 20 (10.0-50.0); Monocytes % (manual) 14 (0-12); Reactive Lymphocytes 5
[2022-09-24] MEDS ORDERED: FUROSEMIDE 20 MG/2 ML VIAL IV ONE (08:45)
[2022-09-24] MEDS: ENOXAPARIN SOD 80 MG/0.8ML SYRINGE SC SCH ×2 (12:01→23:00)
[2022-09-24] MEDS: FUROSEMIDE 20 MG/2 ML VIAL IV SCH (18:43)
[2022-09-24] MEDS: ATORVASTATIN 20 MG TAB PO SCH (22:59)
[2022-09-24] MEDS: CARVEDILOL 12.5 MG TAB PO SCH (23:00)
[2022-09-25] MEDS: FUROSEMIDE 20 MG/2 ML VIAL IV SCH ×2 (06:11→18:00)
[2022-09-25] MEDS ORDERED: ATORVASTATIN 20 MG TAB PO SCH (10:00)
[2022-09-25] MEDS ORDERED: ENOXAPARIN SOD 40 MG/0.4 ML SYRINGE SC SCH (10:00)
[2022-09-25] MEDS: CARVEDILOL 12.5 MG TAB PO SCH ×2 (10:37→22:00)
[2022-09-25] MEDS: ASPirin-EC 81 mg tab PO SCH (10:37)
[2022-09-25] MEDS: LISINOPRIL 5 MG TAB PO SCH (10:38)
[2022-09-25] MEDS: ENOXAPARIN SOD 80 MG/0.8ML SYRINGE SC SCH ×2 (10:38→21:42)
[2022-09-25] MEDS ORDERED: LISI20TA28 PO (13:23)
[2022-09-25 15:30] LABS: Hematocrit 47.6 % (41.0-53.0); Hemoglobin 15.6 g/dL (13.5-17.5); Mean Corpuscular Hemoglobin 29.6 pg (28.0-32.0); Mean Corpuscular Hgb Conc. 32.8 g/dL (32.0-36.0); Mean Corpuscular Volume 90.5 fL (80.0-100.0); Red Blood Cells 5.26 10^6/uL (4.5-5.90); Red Cell Distribution Width 19.9 % (11.8-14.3); White Blood Cell 7.2 10^3/uL (4.4-10.8)
[2022-09-25 15:57] LABS: BUN/Creatinine Ratio 24.2 (10.0-20.0); Calcium 8.1 mg/dL (8.5-10.1); Potassium 3.8 mmol/L (3.5-5.1)
[2022-09-25 16:46] VITALS: BP 82/47
[2022-09-25 16:46] LABS: Band Neutrophils % (manual) 0; Basophils % (manual) 0 (0.0-2.0); Blast Cells 0; Metamyelocytes % 0; Myelocytes % 0; Promyelocytes % 0
[2022-09-25 16:49] LABS: Eosinophils % (manual) 3 (0-7); Lymphocytes % (manual) 52 (10.0-50.0); Monocytes % (manual) 2 (0-12); Reactive Lymphocytes 4
[2022-09-25] MEDS: ATORVASTATIN 20 MG TAB PO SCH (21:42)
[2022-09-25 22:00] VITALS: BP 93/66
[2022-09-26 05:00] VITALS: BP 127/88
[2022-09-26] MEDS: FUROSEMIDE 20 MG/2 ML VIAL IV SCH (05:28)
[2022-09-26 05:52] LABS: Hematocrit 46.4 % (41.0-53.0); Hemoglobin 15.5 g/dL (13.5-17.5); Mean Corpuscular Hemoglobin 29.9 pg (28.0-32.0); Mean Corpuscular Hgb Conc. 33.4 g/dL (32.0-36.0); Mean Corpuscular Volume 89.7 fL (80.0-100.0); Red Blood Cells 5.17 10^6/uL (4.5-5.90); White Blood Cell 9.1 10^3/uL (4.4-10.8)
[2022-09-26 06:09] LABS: Magnesium 1.8 mg/dL (1.6-2.6); Potassium 3.7 mmol/L (3.5-5.1)
[2022-09-26 06:11] LABS: BUN/Creatinine Ratio 29.3 (10.0-20.0); Calcium 8.6 mg/dL (8.5-10.1)
[2022-09-26 06:15] LABS: Band Neutrophils % (manual) 0; Basophils % (manual) 0 (0.0-2.0); Blast Cells 0; Metamyelocytes % 0; Myelocytes % 0; Promyelocytes % 0; Reactive Lymphocytes 0
[2022-09-26 08:30] LABS: Eosinophils % (manual) 2 (0-7); Lymphocytes % (manual) 54 (10.0-50.0); Monocytes % (manual) 11 (0-12)
[2022-09-26 08:56] LABS: Bilirubin, Direct 0.5 mg/dL (0-0.2)
[2022-09-26 08:59] LABS: Bilirubin, Total 1.2 mg/dL (0.2-1.0); Total Protein 6.4 g/dL (6.4-8.2)
[2022-09-26 09:00] VITALS: BP 114/76
[2022-09-26] MEDS: ENOXAPARIN SOD 80 MG/0.8ML SYRINGE SC SCH ×2 (11:08→21:05)
[2022-09-26] MEDS: LISINOPRIL 5 MG TAB PO SCH (11:09)
[2022-09-26] MEDS: ASPirin-EC 81 mg tab PO SCH (11:09)
[2022-09-26] MEDS: FUROSEMIDE 20 MG TAB PO SCH (11:09)
[2022-09-26] MEDS: CARVEDILOL 12.5 MG TAB PO SCH ×2 (11:10→21:05)
[2022-09-26 13:00] VITALS: BP 106/69
[2022-09-26 17:00] VITALS: BP 101/60
[2022-09-26] MEDS: ATORVASTATIN 20 MG TAB PO SCH (21:05)
[2022-09-26 22:00] VITALS: BP 95/66
[2022-09-27 05:00] VITALS: BP 113/74
[2022-09-27 06:23] LABS: Calcium 8.3 mg/dL (8.5-10.1); Potassium 3.5 mmol/L (3.5-5.1)
[2022-09-27 06:25] LABS: BUN/Creatinine Ratio 31.4 (10.0-20.0)
[2022-09-27 08:00] VITALS: BP 112/80
[2022-09-27 09:00] VITALS: BP 112/80
[2022-09-27] MEDS: ASPirin-EC 81 mg tab PO SCH (09:58)
[2022-09-27] MEDS: FUROSEMIDE 20 MG TAB PO SCH (09:59)
[2022-09-27] MEDS: ENOXAPARIN SOD 80 MG/0.8ML SYRINGE SC SCH ×2 (10:00→21:50)
[2022-09-27] MEDS: CARVEDILOL 12.5 MG TAB PO SCH ×2 (10:00→21:50)
[2022-09-27] MEDS: LISINOPRIL 5 MG TAB PO SCH (10:00)
[2022-09-27 13:00] VITALS: BP 92/62
[2022-09-27 17:00] VITALS: BP_SYST 126; BP_SYST 97; BP_DIAS 52; BP_DIAS 53
[2022-09-27] MEDS: ATORVASTATIN 20 MG TAB PO SCH (21:50)
[2022-09-27 22:00] VITALS: BP 103/68
[2022-09-28] VITALS (7 sets, daily range): BP systolic 99–131; BP diastolic 61–91
[2022-09-28] MEDS: ASPirin-EC 81 mg tab PO SCH (10:10)
[2022-09-28] MEDS: ENOXAPARIN SOD 80 MG/0.8ML SYRINGE SC SCH ×2 (10:10→21:19)
[2022-09-28] MEDS: LISINOPRIL 5 MG TAB PO SCH (10:11)
[2022-09-28] MEDS: CARVEDILOL 12.5 MG TAB PO SCH ×2 (10:11→21:18)
[2022-09-28] MEDS: FUROSEMIDE 20 MG TAB PO SCH (10:11)
[2022-09-28] MEDS ORDERED: PANTOPRAZOLE 40 MG TAB PO ONE (10:45)
[2022-09-28] MEDS: ATORVASTATIN 20 MG TAB PO SCH (21:19)
[2022-09-29 05:00] VITALS: BP 109/84
[2022-09-29 06:19] LABS: Potassium 3.9 mmol/L (3.5-5.1)
[2022-09-29 06:27] LABS: BUN/Creatinine Ratio 33.8 (10.0-20.0); Calcium 8.5 mg/dL (8.5-10.1)
[2022-09-29 09:00] VITALS: BP 130/79
[2022-09-29] MEDS: ASPirin-EC 81 mg tab PO SCH (09:40)
[2022-09-29] MEDS: ENOXAPARIN SOD 80 MG/0.8ML SYRINGE SC SCH (09:40)
[2022-09-29] MEDS: FUROSEMIDE 20 MG TAB PO SCH (09:41)
[2022-09-29] MEDS: CARVEDILOL 12.5 MG TAB PO SCH (09:42)
[2022-09-29] MEDS: LISINOPRIL 5 MG TAB PO SCH (09:42)
[2022-09-29] MEDS ORDERED: PANTOPRAZOLE 40 MG TAB PO SCH (10:00)
[2022-09-29] MEDS ORDERED: ATOR20TA PO (10:37)
[2022-09-29] MEDS ORDERED: CAR125T OR (10:37)
[2022-09-29] MEDS ORDERED: FURO1TAB31 PO (10:37)
[2022-09-29] MEDS ORDERED: LISI-275 PO (10:37)
[2022-09-29] MEDS ORDERED: ASPI-325 PO (10:37)
[2022-09-29 11:47] VITALS: BP 109/84
[2022-09-29 13:00] VITALS: BP 109/73
[2022-09-29 17:00] VITALS: BP 114/74
== END 2022-09-29 18:31 | disposition home or self-care (01) | DRG 291 ==
LOC: ER 19:56 → TELE 09-24 10:49 → TELE-EAST 09-25 13:26
PROVIDERS: ADMIT Nurse Practitioner Family; ATTEND Internal Medicine Geriatric Medicine
DX: I11.0 Hypertensive heart disease with heart failure (principal); I50.43 Acute on chronic combined systolic (congestive) and diastolic (congestive) heart failure; J96.01 Acute respiratory failure with hypoxia; E44.1 Mild protein-calorie malnutrition; E78.5 Hyperlipidemia, unspecified; Z95.1 Presence of aortocoronary bypass graft; E66.09 Other obesity due to excess calories; I25.2 Old myocardial infarction; K76.0 Fatty (change of) liver, not elsewhere classified; Z82.0 Family history of epilepsy and other diseases of the nervous system; Z82.3 Family history of stroke; Z82.49 Family history of ischemic heart disease and other diseases of the circulatory system; Z82.5 Family history of asthma and other chronic lower respiratory diseases; Z83.3 Family history of diabetes mellitus; Z91.148 Patient's other noncompliance with medication regimen for other reason; Z68.29 Body mass index [BMI] 29.0-29.9, adult
CPT/HCPCS: 36415; 36600; 71045; 76705; 80048; 80053; 80076; 82805; 83735; 83880; 84484; 85007; 85027; 85379; 85610; 85730; 93005; 93306; 93970; 96374; 99291; G0378

== ENCOUNTER 2022-10-06 15:45 | Inpatient (IN) | payer MEDICARE, MEDICAID ==
[~2022-10-06] VITALS: Ht 170.2 cm; Wt 88.5 kg
[~2022-10-06 15:45] MED LIST changes: +ASPI-325 PO; +CAR125T OR; +LISI-275 PO; -LOSA25TA38 PO
[2022-10-06 17:09] LABS: Basophils # (auto) 0 10 ^3/uL (0-0.2); Basophils % (auto) 0.8 % (0.0-2.0); Eosinophils # (auto) 0.1 10 ^3/uL (0-0.8); Eosinophils % (auto) 1.9 % (0.0-7.0); Hematocrit 41.2 % (41.0-53.0); Hemoglobin 13.7 g/dL (13.5-17.5); Lymphocytes # (auto) 1.7 10 ^3/uL (0.4-5.4); Lymphocytes % (auto) 30.3 % (10.0-50.0); Mean Corpuscular Hemoglobin 30.5 pg (28.0-32.0); Mean Corpuscular Hgb Conc. 33.2 g/dL (32.0-36.0); Mean Corpuscular Volume 91.8 fL (80.0-100.0); Monocytes # (auto) 0.8 10 ^3/uL (0-1.3); Nucleated Red Blood Cells % 0.1 %; Red Blood Cells 4.49 10^6/uL (4.5-5.90); Red Cell Distribution Width 18.1 % (11.8-14.3); White Blood Cell 5.6 10^3/uL (4.4-10.8)
[2022-10-06 17:19] LABS: Albumin 2.9 g/dL (3.4-5.0); Calcium 8.1 mg/dL (8.5-10.1); Potassium 3.7 mmol/L (3.5-5.1)
[2022-10-06 17:22] LABS: BUN/Creatinine Ratio 27.9 (10.0-20.0); Bilirubin, Total 1.2 mg/dL (0.2-1.0); Total Protein 6.2 g/dL (6.4-8.2)
[2022-10-06] MEDS ORDERED: HYDROcodone-ACET 5/325MG TAB PO ONE (17:30)
[2022-10-06] MEDS ORDERED: FUROSEMIDE 40 MG/4 ML VIAL IV ONE (21:00)
[2022-10-06] MEDS ORDERED: VANCOMYCIN PER PHARMACY 0 MG IV SCH (21:00)
[2022-10-06] MEDS ORDERED: PIPERACILLIN-TAZOB 3.375GM 100 ML IV ONE (21:00)
[2022-10-06] MEDS ORDERED: VANCOMYCIN 1GM/250ML 250 ML IV ONE (21:15)
[2022-10-06] MEDS ORDERED: ONDANSETRON HCL 4 MG/2 ML VIAL IV PRN (21:45)
[2022-10-06] MEDS ORDERED: ALBUMIN 25% 50 ML IV ONE (21:45)
[2022-10-06] MEDS ORDERED: TEMAZEPAM 15 MG CAP PO PRN (21:45)
[2022-10-06] MEDS ORDERED: HYDROcodone-ACET 5/325MG TAB PO PRN (21:45)
[2022-10-06] MEDS ORDERED: ACETAMINOPHEN 325 MG TAB PO PRN (21:45)
[2022-10-07] MEDS: ATORVASTATIN 20 MG TAB PO SCH ×2 (00:54→21:48)
[2022-10-07] MEDS: CARVEDILOL 12.5 MG TAB PO SCH ×3 (00:59→21:48)
[2022-10-07 01:10] LABS: Urine Bacteria NONE SEEN /hpf (None Seen); Urine Blood Negative /uL (Negative); Urine Hyaline Cast FEW /lpf (0 - 2); Urine Mucus FEW (None Seen); Urine Specific Gravity 1.024 (1.001-1.035); Urine WBC 11 /hpf (0 - 3)
[2022-10-07] MEDS: CLINDAMYCIN 300MG IV 50 ML IV SCH ×5 (04:34→22:46)
[2022-10-07 05:52] LABS: Basophils # (auto) 0.1 10 ^3/uL (0-0.2); Basophils % (auto) 0.8 % (0.0-2.0); Eosinophils # (auto) 0.1 10 ^3/uL (0-0.8); Eosinophils % (auto) 2.4 % (0.0-7.0); Hematocrit 40.1 % (41.0-53.0); Hemoglobin 13.2 g/dL (13.5-17.5); Lymphocytes # (auto) 2.2 10 ^3/uL (0.4-5.4); Lymphocytes % (auto) 36.4 % (10.0-50.0); Mean Corpuscular Hemoglobin 30.2 pg (28.0-32.0); Mean Corpuscular Volume 91.6 fL (80.0-100.0); Monocytes # (auto) 0.7 10 ^3/uL (0-1.3); Monocytes % (auto) 12.2 % (0.0-12.0); Neutrophils % (auto) 48.2 % (37.0-80.0); Nucleated Red Blood Cells % 0.3 %; Red Blood Cells 4.38 10^6/uL (4.5-5.90); Red Cell Distribution Width 17.4 % (11.8-14.3); White Blood Cell 6.1 10^3/uL (4.4-10.8)
[2022-10-07] MEDS: FUROSEMIDE 20 MG/2 ML VIAL IV SCH ×2 (06:02→18:00)
[2022-10-07 06:05] LABS: Calcium 8.1 mg/dL (8.5-10.1)
[2022-10-07 06:10] LABS: BUN/Creatinine Ratio 26.1 (10.0-20.0); Bilirubin, Total 1.2 mg/dL (0.2-1.0); Total Protein 6.2 g/dL (6.4-8.2)
[2022-10-07] MEDS: PANTOPRAZOLE 40 MG TAB PO SCH (10:00)
[2022-10-07] MEDS: LISINOPRIL 5 MG TAB PO SCH (10:00)
[2022-10-07] MEDS: ASPirin 81 mg TAB PO SCH (10:00)
[2022-10-07 14:48] VITALS: BP 98/66
[2022-10-07] MEDS: VANCOMYCIN 1GM/250ML 250 ML IV SCH (15:43)
[2022-10-07] MEDS ORDERED: MAGNESIUM SULFATE 1GM/100ML 100 ML IV ONE (18:45)
[2022-10-07] MEDS ORDERED: POTASSIUM EFFERVESENT TAB 25 MEQ PO ONE (18:45)
[2022-10-07 19:00] VITALS: BP 111/70
[2022-10-07 22:00] VITALS: BP 111/70
[2022-10-08] MEDS: CLINDAMYCIN 300MG IV 50 ML IV SCH ×7 (00:36→21:56)
[2022-10-08] MEDS: VANCOMYCIN 1GM/250ML 250 ML IV SCH ×2 (03:07→15:15)
[2022-10-08 05:00] VITALS: BP 81/42
[2022-10-08] MEDS: FUROSEMIDE 20 MG/2 ML VIAL IV SCH ×2 (05:42→18:00)
[2022-10-08 09:00] VITALS: BP 101/64
[2022-10-08] MEDS: LISINOPRIL 5 MG TAB PO SCH (10:00)
[2022-10-08] MEDS: CARVEDILOL 12.5 MG TAB PO SCH ×2 (10:00→22:13)
[2022-10-08] MEDS: ASPirin 81 mg TAB PO SCH (11:34)
[2022-10-08] MEDS: POTASSIUM CHL 20 Meq TABLET PO SCH (11:34)
[2022-10-08] MEDS: PANTOPRAZOLE 40 MG TAB PO SCH (11:34)
[2022-10-08 12:19] LABS: INR 1.18 (0.9-1.15); Partial Thromboplastin Time 27.3 sec (24.6-33.4)
[2022-10-08 13:00] VITALS: BP 115/74
[2022-10-08] MEDS ORDERED: LIDOCAINE 1% (LOCAL ANESTH.) PF 5ml SDV ID ONE (15:15)
[2022-10-08 17:00] VITALS: BP 108/71
[2022-10-08] MEDS: SODIUM CHLOR 0.9% PF (SALINE LOCK) 10ML VIAL/SYR IV SCH (21:57)
[2022-10-08 22:00] VITALS: BP 121/67
[2022-10-08] MEDS: ATORVASTATIN 20 MG TAB PO SCH (22:10)
[2022-10-09] MEDS ORDERED: ATROPINE SULF 1 MG/10ml SYR IV PRN (04:30)
[2022-10-09 05:00] VITALS: BP 115/78
[2022-10-09] MEDS: FUROSEMIDE 20 MG/2 ML VIAL IV SCH ×2 (06:00→18:00)
[2022-10-09] MEDS: VANCOMYCIN 1GM/250ML 250 ML IV SCH (08:25)
[2022-10-09] MEDS: SODIUM CHLOR 0.9% PF (SALINE LOCK) 10ML VIAL/SYR IV SCH (08:29)
[2022-10-09 09:00] VITALS: BP 124/79
[2022-10-09] MEDS: LISINOPRIL 5 MG TAB PO SCH (10:00)
[2022-10-09] MEDS: CARVEDILOL 12.5 MG TAB PO SCH ×2 (10:00→22:00)
[2022-10-09] MEDS: ASPirin 81 mg TAB PO SCH (10:51)
[2022-10-09] MEDS: PANTOPRAZOLE 40 MG TAB PO SCH (10:53)
[2022-10-09] MEDS: POTASSIUM CHL 20 Meq TABLET PO SCH (10:53)
[2022-10-09] MEDS ORDERED: levoFLOXacin 500MG 100 ML IV ONE (11:00)
[2022-10-09 13:00] VITALS: BP 117/80
[2022-10-09 17:00] VITALS: BP 120/79
[2022-10-09 22:00] VITALS: BP 126/82
[2022-10-09] MEDS: ATORVASTATIN 20 MG TAB PO SCH (22:00)
[2022-10-10 03:04] VITALS: BP 126/82
[2022-10-10 05:00] VITALS: BP 135/95
[2022-10-10 09:00] VITALS: BP 138/100
[2022-10-10] MEDS: POTASSIUM CHL 20 Meq TABLET PO SCH (10:00)
[2022-10-10] MEDS: LISINOPRIL 5 MG TAB PO SCH (10:00)
[2022-10-10] MEDS: ASPirin 81 mg TAB PO SCH (10:00)
[2022-10-10] MEDS: PANTOPRAZOLE 40 MG TAB PO SCH (10:00)
[2022-10-10] MEDS: CARVEDILOL 12.5 MG TAB PO SCH (10:00)
[2022-10-10] MEDS ORDERED: levoFLOXacin 500MG 100 ML IV SCH (10:00)
[2022-10-10 13:00] VITALS: BP 137/88
[2022-10-10 16:52] VITALS: BP 132/98
== END 2022-10-10 16:54 | DRG 177 ==
LOC: ER 15:45 → OVERFLOW 21:51 → WEST WING 10-07 14:45 → TELE-WESTW 10-07 17:05
PROVIDERS: ADMIT Nurse Practitioner; ATTEND Family Medicine
PROC: 02HV33Z Insertion of Infusion Device into Superior Vena Cava, Percutaneous Approach (ICD-10-PCS; 2022-10-08)
PROC: B548ZZA Ultrasonography of Superior Vena Cava, Guidance (ICD-10-PCS; 2022-10-08)
PROC: 5A09357 Assistance with Respiratory Ventilation, Less than 24 Consecutive Hours, Continuous Positive Airway Pressure (ICD-10-PCS; principal; 2022-10-09)
DX: J15.6 Pneumonia due to other Gram-negative bacteria (principal); I50.43 Acute on chronic combined systolic (congestive) and diastolic (congestive) heart failure; L03.115 Cellulitis of right lower limb; E44.0 Moderate protein-calorie malnutrition; N17.9 Acute kidney failure, unspecified; N39.0 Urinary tract infection, site not specified; L03.116 Cellulitis of left lower limb; E78.00 Pure hypercholesterolemia, unspecified; E83.51 Hypocalcemia; I11.0 Hypertensive heart disease with heart failure; Z20.822 Contact with and (suspected) exposure to COVID-19; R74.01 Elevation of levels of liver transaminase levels; G47.30 Sleep apnea, unspecified; I73.9 Peripheral vascular disease, unspecified; I25.2 Old myocardial infarction; Z91.199 Patient's noncompliance with other medical treatment and regimen due to unspecified reason; Z95.1 Presence of aortocoronary bypass graft; Z98.61 Coronary angioplasty status; Z82.0 Family history of epilepsy and other diseases of the nervous system; Z82.3 Family history of stroke; Z83.3 Family history of diabetes mellitus; Z82.5 Family history of asthma and other chronic lower respiratory diseases; Z82.49 Family history of ischemic heart disease and other diseases of the circulatory system; Z68.30 Body mass index [BMI] 30.0-30.9, adult
CPT/HCPCS: 36415; 36569; 71045; 80053; 80202; 81001; 82565; 83605; 83690; 83880; 84484; 85025; 85610; 85730; 87040; 87077; 87186; 87205; 87426; 93005; 93925; 93970; 94660; G0378; J1956; J2543; J3490